=== PATIENT | female | born 2000 | race Caucasian/White ===

== ENCOUNTER 2022-02-24 16:46 | Emergency (ER) | payer BC ==
[~2022-02-24] VITALS: Ht 147.3 cm; Wt 45.4 kg
[2022-02-24 17:02] VITALS: BP_SYST 121
[2022-02-24] MEDS ORDERED: IBUPROFEN 600 MG TABLET PO ONE (17:15)
[2022-02-24] MEDS ORDERED: IBUP-1969 PO ×2 (17:16→17:55)
[2022-02-24] MEDS ORDERED: AMOX-423 PO (17:16)
[2022-02-24] MEDS ORDERED: AMOX1TAB14 PO (17:55)
[2022-02-24] MEDS ORDERED: AMOXICILLIN/CLAVULANATE POTASSIUM 500 MG TABLET PO ONE (18:00)
[2022-02-24] MEDS ORDERED: DIPH-TET-PERTUS Vaccine 0.5 ML VIAL (ADACEL) I.M. ONE (18:00)
== END 2022-02-24 18:22 | disposition home or self-care (01) ==
LOC: SED 16:46
DX: S61.452A Open bite of left hand, initial encounter (principal); S60.222A Contusion of left hand, initial encounter; W54.0XXA Bitten by dog, initial encounter; Y93.89 Activity, other specified; Y92.89 Other specified places as the place of occurrence of the external cause; Y99.8 Other external cause status
CPT/HCPCS: 90715; 99283